=== PATIENT | male | born 2000 | race Caucasian/White ===

== ENCOUNTER 2022-05-04 15:09 | Emergency (ER) | payer OTHER ==
[2022-05-04] MEDS ORDERED: LIDOCAINE 1% INJ 10MG/ML (30 ML VIAL-PF) SQ ONE (18:33)
--- NOTE | 2022-05-04 18:58 | XR ---
EXAMINATION TYPE: XR hand complete RT DATE OF EXAM: 05/04/2022 COMPARISON: NONE HISTORY: Laceration TECHNIQUE: 3 views FINDINGS: The metacarpals are intact. There is soft tissue deformity on the medial aspect of the fift h metacarpal consistent with laceration. No definite foreign body seen. The joint spaces are normal. Fingers are intact. Carpal bones are intact. IMPRESSION: Laceration deformity. No fracture seen.
--- NOTE | 2022-05-04 20:48 | ED ---
Wound/Laceration HPI - General Chief Complaint: Wound/Laceration Stated Complaint: cut hand Time Seen by Provider: 05/04/22 18:24 Source: patient Mode of arrival: ambulatory Limitations: no limitations - History of Present Illness Initial Comments: Patient is a 21-year-old male presenting with chief complaint of laceration. Patient was at work and cut his hand on a broken headlight. He sustained a flap laceration as well as an avulsion injury and a small less than 1 cm laceration to the right hand. Patient has full range of motion. No numbness or tingling. His last tetanus shot was 3 years ago. Bleeding is well controlled upon arrival. - Related Data Allergies Allergy/AdvReac Type Severity Reaction Status Date / Time No Known Allergies Allergy Verified 05/04/22 15:47 Review of Systems ROS Statement: Those systems with pertinent positive or pertinent negative responses have been documented in the HPI. ROS Other: All systems not noted in ROS Statement are negative. Past Medical History Past Medical History: No Reported History History of Any Multi-Drug Resistant Organisms: None Reported Past Surgical History: No Surgical Hx Reported Past Psychological History: No Psychological Hx Reported Smoking Status: Never smoker Past Alcohol Use History: None Reported Past Drug Use History: None Reported General Exam Limitations: no limitations General appearance: alert, in no apparent distress Head exam: Present: atraumatic, normocephalic, normal inspection Eye exam: Present: normal appearance Neck exam: Present: normal inspection Neurological exam: Present: alert, oriented X3, CN II-XII intact Psychiatric exam: Present: normal affect, normal mood Expanded Type of lesion: Present: laceration (Laceration #1 measuring about 8 cm, laceration #2 measuring 1 cm, both located on the right hand) Course Vital Signs 05/04/22 05/04/22 05/04/22 15:43 19:08 20:58 Temperature 98.7 F 98.9 F 98.5 F Pulse Rate 100 100 117 H Respiratory 20 18 16 Rate Blood Pressure 132/75 132/75 136/90 O2 Sat by Pulse 100 98 96 Oximetry Procedures - Laceration Laceration #1 Consent Obtained: verbal consent Indication: laceration Site: hand (R) Description: flap Depth: simple, single layer Anesthetic Used: lidocaine 1%, without epi Anesthesia Technique: local infiltration Pre-repair: wound explored, irrigated extensively, deep structures intact Type of Sutures: nylon Size of Sutures: 4-0 Number of Sutures: 9 Technique: simple, interrupted Patient Tolerated Procedure: well Laceration #2 Consent Obtained: verbal consent Indication: laceration Site: hand (R) Size (cm): 1 Description: linear Depth: simple, single layer Anesthetic Used: lidocaine 1%, without epi Anesthesia Technique: local infiltration Pre-repair: wound explored, irrigated extensively Type of Sutures: nylon Size of Sutures: 4-0 Number of Sutures: 2 Technique: simple, interrupted Patient Tolerated Procedure: well Medical Decision Making - Medical Decision Making Patient is a 21-year-old male presenting with chief complaint of laceration to the right hand. X-ray showed no fracture or radiopaque foreign body. Confirmed by my interpretation. The wounds are irrigated with 1 L sterile water. I repaired the wounds using simple interpreted sutures, 4-0 nylon. 11 sutures in total were applied, 9 sutures are applied to laceration #1 and 2 sutures were applied to laceration #2. Educated on wound care. Follow-up with PCP. Report back to ER with any new or worsening symptoms. Discussed return parameters and answered all questions. Patient conveyed verbal understanding and agreed to the plan. I discussed this case in detail with my attending Dr. Crow Disposition Clinical Impression: Laceration Disposition: HOME SELF-CARE Condition: Good Instructions (If sedation given, give patient instructions): Care For Your Stitches (ED), Laceration (ED) Additional Instructions: Follow-up with PCP. Report back to ER with any new or worsening symptoms. Keep the wound clean, dry, and covered. Wash gently with soap and water. Sutures may be removed in 10-14 days. Avoid submersion of the wounds, such as washing dishes, baths, or swimming. Is patient prescribed a controlled substance at d/c from ED?: No Referrals: Royce Contreras MD [Primary Care Provider] - 1-2 days Time of Disposition: 20:48
[2022-05-04 21:00] VITALS: BP 136/90; PULSE 117; RESP 16; TEMP 98.5
== END 2022-05-04 21:00 | disposition home or self-care (01) ==
LOC: EC 15:09
DX: S61.411A Laceration without foreign body of right hand, initial encounter (principal); W26.9XXA Contact with unspecified sharp object(s), initial encounter
CPT/HCPCS: 73130; 99283; 12001; J2001